=== PATIENT | male | born 1965 | race Caucasian/White ===

== ENCOUNTER 2016-12-07 07:58 | Emergency (ER) | payer OTHER ==
[~2016-12-07] VITALS: Ht 182.9 cm; Wt 120.2 kg
[~2016-12-07 07:58] MED LIST: AUGMENTIN XR1 TABLET PO; COLACE100 MG PO; DILAUDID 11 MG/1 ML IM/IV; FLOMAX0.4 MG PO; LEVOTHYROXINE75 MCG PO; LOFIBRA160 MG PO; MELOXICAM15 MG PO; METAMUCIL1 PKT PO; METFORMIN HCL1000 MG PO; METFORMIN HCL500 MG PO; METRONIDAZOLE500 MG PO; MULTIVITAMINS1 EAC7 PO; NORCO 5-325 TA1 EACH PO; PERCOCET 5-3251 EACH PO; SIMVASTATIN80 MG PO; SYNTHROID50 MCG PO; VITAMIN C500 M1 PO; ZOCOR5 MG PO; ZOFRAN4 MG PO
== END 2016-12-07 08:22 | disposition home or self-care (01) ==
LOC: ED 07:58
DX: Z00.8 Encounter for other general examination (principal)

== ENCOUNTER 2022-07-28 07:30 | Day surgery (SDC) | payer OTHER ==
[~2022-07-28] VITALS: Ht 182.9 cm; Wt 121.3 kg
[~2022-07-28 07:30] MED LIST changes: +BAYER CHEWABLE81 MG PO; +CO Q-1010 MG PO; +COZAAR25 MG PO; +FISH OIL 1,0001 EAC6 PO; +GLIPIZIDE5 MG PO; +LIPITOR40 MG PO; +NEURONTIN300 MG PO; +RYBELSUS3 MG PO
--- NOTE | 2022-07-28 10:00 | NUR ---
07/28/22 1000 Janneth Woods 1800-PATIENT ARRIVED TO PACU ON 2L NC RR EVEN PATIENT AWAKE HEAD OFF PILLOW LAYING ON LEFT SIDE. PATIENT ORIENTED TO PACU DENIES PAIN OR NAUSEA. ABDOMEN SOFT ENCOURAGED TO PASS GAS. IVF INFUSING
--- NOTE | 2022-07-28 13:34 | NUR ---
PT IS ALERT, ORIENTED AND SUPPORTED BY HIS . RETREIVED A PAGER FOR HER, PT HAS HAD SCOPES BEFORE. GAVE BLESSING, WILL FOLLOW
--- NOTE | 2022-07-29 08:29 | OR ---
[facility] [address], [place] [address] Signed DATE OF OPERATION: 07/28/2022 SURGEON: Jayda Rock MD PREOPERATIVE DIAGNOSES: 1. Diverticulosis. 2. Erum's resection with reversal in 2013 at age 46. 3. Internal anal skin tags. POSTOPERATIVE DIAGNOSES: 1. 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 2. Minimal internal anal skin tags. 3. Left colon diverticulum x1. PROCEDURE: Colonoscopy without biopsy. ESTIMATED BLOOD LOSS: None. INDICATIONS: Dami is a 56-year-old gentleman, who 1st came to us in 2013 with perforated diverticulitis. He was 46 years of age. He required a Erum's resection. We had reversed him later that same year. He has a Deutsch side-to-end colorectal anastomosis at about 23 cm. We performed a colonoscopy for him later that year and he had just a couple of diverticula remaining in his left colon. He had small internal anal skin tags. He did well with Versed and fentanyl. We had asked him to follow up in 10 years. In the meantime, he said he is doing great. In the office, I had given him a pamphlet on colonoscopy. He recalls the test. There is risk including but not limited to gas bloating, crampy abdominal pain, bleeding, perforation requiring surgery, and missed diagnosis. He recalls vomiting with the MiraLAX and Gatorade bowel prep. On this occasion, he used the suprep. This was the liquid bowel prep. He did very well. We also reviewed the need for IV conscious sedation. He had expressed understanding and wished to proceed. He has always done well with Versed and fentanyl in the past. PROCEDURE NOTE: Dami was taken into our endoscopy suite and placed in the left lateral decubitus position. He was given IV sedation with 10 mg of Versed and 200 mcg of fentanyl to cover the whole case. A digital rectal exam was performed and this was unremarkable. He has good sphincter tone. Dami is a large man and I could not reach the prostate Electronically Signed By: JAYDA ROCK MD 07/29/22 0829 PATIENT NAME: DAMI GODINEZ OPERATIVE REPORT DATE OF : 63 REPORT #: [id number] PHYSICIAN: JAYDA ROCK MD PCP: EMI SHARMA REPORT IS CONFIDENTIAL AND NOT TO BE RELEASED WITHOUT AUTHORIZATION [facility] [address], [place] [address] Signed with my index finger. There were no masses. The adult colonoscope was introduced and advanced quite readily around into the cecum itself. His prep was quite good. We could easily see the appendiceal orifice and the ileocecal valve. The scope was then slowly withdrawn. We took pictures throughout for photodocumentation. His colorectal anastomosis is at 23 cm. It is well healed without any ulceration or granulation tissue. The end of the left colon is well healed. I saw just one diverticulum as I came down the left colon. The scope had been retroflexed in the rectum. He does have just several small internal anal skin tags. After this, the gas was suctioned out and the colonoscope removed. Dami tolerated the procedure quite well. RECOMMENDATIONS: Dami can follow up in 10 years for repeat colonoscopy. Jayda Rock MD ALB/MODL /[id number] cc: MD Emi Muniz PA Copies: JAYDA ROCK MD, LINDA PA ~ Electronically Signed By: JAYDA ROCK MD 07/29/22 0829 PATIENT NAME: DAMI GODINEZ OPERATIVE REPORT DATE OF : 63 REPORT #: [id number] PHYSICIAN: JAYDA ROCK MD PCP: EMI SHARMA REPORT IS CONFIDENTIAL AND NOT TO BE RELEASED WITHOUT AUTHORIZATION
== END 2022-07-28 10:35 | disposition home or self-care (01) ==
LOC: OPS 07:30 → DS 07:30 → OPS 09:00
PROVIDERS: ATTEND Colon & Rectal Surgery
PROC: 0DJD8ZZ Inspection of Lower Intestinal Tract, Via Natural or Artificial Opening Endoscopic (ICD-10-PCS; principal; 2022-07-28 09:00)
DX: K57.30 Diverticulosis of large intestine without perforation or abscess without bleeding (principal); E66.9 Obesity, unspecified; Z68.36 Body mass index [BMI] 36.0-36.9, adult; K64.4 Residual hemorrhoidal skin tags; Z90.49 Acquired absence of other specified parts of digestive tract; E11.9 Type 2 diabetes mellitus without complications; I10 Essential (primary) hypertension; G47.33 Obstructive sleep apnea (adult) (pediatric)
CPT/HCPCS: 99153; G0500; J2250; J3010; J7121

== ENCOUNTER 2023-05-07 14:55 | Emergency (ER) | payer OTHER ==
[~2023-05-07] VITALS: Ht 182.9 cm; Wt 120.7 kg
[2023-05-07 15:14] LABS: BILIRUBIN, URINE NEGATIVE (negative); BLOOD/HGB, URINE TRACE-I (Negative); KETONE, URINE NEGATIVE (Negative); LEUK ESTERASE, URINE NEGATIVE (negative); NITRITE, URINE NEGATIVE (negative)
[2023-05-07] MEDS ORDERED: COQ-10100 MG PO (15:17)
[2023-05-07] MEDS ORDERED: NORVASC5 MG PO (15:17)
[2023-05-07 15:21] LABS: EPITHELIAL CELLS, URINE 0 /lpf (0-1+); WHITE BLOOD CELLS, URINE 0-1 /HPF (0-5)
[2023-05-07 15:22] LABS: BACTERIA, URINE NONE SEEN /hpf (negative); CASTS, URINE NONE SEEN \\lpf; COLLECTION TYPE, URINE CLEAN CATCH; CRYSTALS, URINE NONE SEEN (0-1+); REFLEX CULTURE, URINE No (No)
[2023-05-07 15:43] LABS: HEMOGLOBIN 14.4 g/dL (12.0-18.0); MCHC 33.9 g/dl (30-36)
[2023-05-07 15:47] LABS: HEMATOCRIT 42.6 % (35.0-50.0); MCH 29.5 (27-36); MCV 87.1 fl (81-99); PLATELET COUNT 233 K/uL (140-440); RBC 4.89 M/ul (4.3-5.7); RDW 14.1 (10.5-15.0)
[2023-05-07 15:58] LABS: ALBUMIN 3.8 g/dL (3.4-5.0); ALBUMIN/GLOBULIN RATIO 1.03 (1.1-2.4); ANION GAP 18.3 (7-21); BILIRUBIN, TOTAL 0.5 ng/dL (0.2-1.0); BUN/CREATININE RATIO 16.19 (6.0-28.6); CALCIUM 9.5 mg/dL (8.5-10.1); CREATININE, SERUM 1.42 mg/dL (0.70-1.30); POTASSIUM 4.3 mmol/L (3.5-5.1); PROTEIN, TOTAL 7.5 g/dL (6.4-8.2)
[2023-05-07 16:06] LABS: BANDS, MANUAL DIFF 2; BASOPHILS, MANUAL DIFF 1; EOSINOPHILS, MANUAL DIFF 3; LYMPHOCYTES, MANUAL DIFF 9; MONOCYTES, MANUAL DIFF 2; NEUTROPHILS, MANUAL DIFF 83
[2023-05-07] MEDS ORDERED: ONDANSETRON ODT4 MG PO (17:21)
[2023-05-07] MEDS ORDERED: HYDROCODON-ACE1 EA10 PO (17:21)
[2023-05-07 17:35] VITALS: BP 128/89
== END 2023-05-07 17:36 | disposition home or self-care (01) ==
LOC: ED 14:55
PROVIDERS: Emergency Medicine
DX: N13.2 Hydronephrosis with renal and ureteral calculous obstruction (principal); E11.9 Type 2 diabetes mellitus without complications; E78.5 Hyperlipidemia, unspecified; E03.9 Hypothyroidism, unspecified; Z88.8 Allergy status to other drugs, medicaments and biological substances; Z88.2 Allergy status to sulfonamides; Z88.1 Allergy status to other antibiotic agents; Z79.84 Long term (current) use of oral hypoglycemic drugs; Z79.82 Long term (current) use of aspirin; Z79.890 Hormone replacement therapy; Z79.899 Other long term (current) drug therapy
CPT/HCPCS: 36415; 74176; 80053; 81001; 85025; 96374; 96375; 99284-25; J1885; J2405